=== PATIENT | female | born 2000 | race Caucasian/White ===

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

== ENCOUNTER 2024-04-26 09:05 | Emergency (ER) | payer SELFPAY ==
[~2024-04-26] VITALS: Ht 177.8 cm; Wt 104.0 kg
[~2024-04-26 09:05] MED LIST: ALBU6.7H14 INH
[2024-04-26 09:14] VITALS: BP 128/74; PULSE 77; RESP 16; TEMP 98.4; O2SAT 98
[2024-04-26] MEDS ORDERED: LIDOcaine 2% Viscous 15ml cup MM PRN (10:45)
[2024-04-26] MEDS ORDERED: AMOX-117 PO (11:15)
== END 2024-04-26 11:49 | disposition home or self-care (01) ==
LOC: ER 09:05
DX: K04.7 Periapical abscess without sinus (principal)
CPT/HCPCS: 41800; 99284

== ENCOUNTER 2024-06-13 12:58 | Emergency (ER) | payer MEDICAID ==
[~2024-06-13] VITALS: Ht 177.8 cm; Wt 104.5 kg
[2024-06-13] MEDS ORDERED: CLIN-15 PO (15:18)
[2024-06-13 15:26] VITALS: BP 143/84; PULSE 61; RESP 16; TEMP 97.8; O2SAT 100
== END 2024-06-13 15:27 | disposition home or self-care (01) ==
LOC: ER 12:58
DX: K04.7 Periapical abscess without sinus (principal)
CPT/HCPCS: 99283